=== PATIENT | female | born 1990 | race Caucasian/White ===

== ENCOUNTER 2016-11-26 19:29 | Emergency (ER) | payer OTHER ==
[~2016-11-26] VITALS: Ht 160 cm; Wt 70.9 kg
[~2016-11-26 19:29] MED LIST: IRON325 MG PO; MOTRIN800 MG PO; Motrin PO; SUBOXONE 8 MG-1 EAC2 SL; ZOFRAN ODT8 MG PO
[2016-11-26 19:42] VITALS: BP 138/90
[2016-11-26] MEDS ORDERED: MEDROL DOSEPAK4 MG PO (23:32)
[2016-11-26] MEDS ORDERED: ROBITUSSIN AC,T10 ML PO (23:32)
[2016-11-26] MEDS ORDERED: PROVENTIL,2.5 MG/3 M IH (23:32)
[2016-11-26] MEDS ORDERED: VENTOLIN HFA18 GM IH (23:42)
== END 2016-11-26 23:33 | disposition home or self-care (01) ==
LOC: EME 19:29 → EXP 19:29
DX: J20.9 Acute bronchitis, unspecified (principal); F17.200 Nicotine dependence, unspecified, uncomplicated
CPT/HCPCS: 71020; 94640; 99281; 99283; J7512

== ENCOUNTER 2016-12-13 19:17 | Emergency (ER) | payer OTHER ==
[~2016-12-13] VITALS: Ht 160 cm; Wt 70.9 kg
[~2016-12-13 19:17] MED LIST changes: +MEDROL DOSEPAK4 MG PO; +PROVENTIL,2.5 MG/3 M IH; +ROBITUSSIN AC,T10 ML PO; +VENTOLIN HFA18 GM IH
[2016-12-13 19:36] LABS: MCH 31.5 PG (29.0-34.0); MCV 95.2 FL (83-99); MEAN PLAT.VOLUME 8.8 uM^3 (9.5-12.4); PLATELET COUNT 317 K/uL (156-360); RBC DIS.WIDTH-CV 11.6 % (11.8-14.6); RBC DIS.WIDTH-SD 40.3 % (39-53); RED BLOOD COUNT 4.83 M/uL (3.80-5.20); WHITE BLOOD COUNT 10.7 K/uL (4.1-10.2)
[2016-12-13 19:43] LABS: CHLORIDE 104 mEq/L (99-109); POTASSIUM 3.9 mEq/L (3.7-5.4); SODIUM 142 mEq/L (136-147)
[2016-12-13 19:44] LABS: GLUCOSE 75 mg/dL (70-99)
[2016-12-13 19:46] LABS: ANION GAP 9 MEQ/L (2-14)
[2016-12-13 19:48] LABS: GFR ESTIMATE (CALCULATED) > 59 mL/min/
[2016-12-13 19:49] LABS: UREA NITROGEN (BUN) 9 mg/dL (9-23)
[2016-12-13] MEDS ORDERED: ZITHROMAX Z-PA250 MG PO (22:36)
[2016-12-13] MEDS ORDERED: ROBITUSSIN AC,T10 ML PO (22:37)
[2016-12-13] MEDS ORDERED: NAPROSYN500 MG PO (22:37)
[2016-12-13] MEDS ORDERED: DUONEB 2.5-0.5 M3 ML AEROSOL (22:37)
[2016-12-13] MEDS ORDERED: PREDNISONE20 MG PO (22:40)
[2016-12-13 23:16] VITALS: BP 124/67
== END 2016-12-13 23:19 | disposition home or self-care (01) ==
LOC: EME 19:17
DX: J45.909 Unspecified asthma, uncomplicated (principal); F17.200 Nicotine dependence, unspecified, uncomplicated
CPT/HCPCS: 71020; 80048; 85027; 94640; 94640 76; 99281; 99284; J2930